=== PATIENT | male | born 1985 | race Caucasian/White ===

== ENCOUNTER → 2025-05-02 | Day surgery (SDC) | payer BC ==
[2025-04-29 16:09] LABS: BASOPHILS % 0.5 % (0.0-1.0); EOSINOPHILS % 2.0 % (0.0-6.0); LYMPHOCYTES % 27.4 % (18.0-39.1); MONOCYTES % 10.8 % (4.4-11.3); NEUTROPHILS % 58.8 % (38.7-80.0); RED CELL DISTRIBUTION WIDTH 13.2 % (11.7-14.4)
[2025-04-29 16:43] LABS: EST GLOMERULAR FILTRATION RATE 65.0 ML/MIN (>=60)
[~2025-05-02] MED LIST: ACETAMINOPHEN 1000 MG/100 ML 100 ML IV ONE; ATORVASTATIN CA20 MG PO; ELIQUIS5 MG PO; FAMOTIDINE 20 MG/2 ML VIAL IV ONE; FENTANYL CITRATE/PF 100MCG/2 ML INJ ONE; FISH OIL 1,001000 M1 PO; LIDOCAINE HCL 2% LOCAL INJ 5 ML SDV VIAL INJ ONE; LOSARTAN POTASS25 MG PO; METFORMIN HCL500 MG PO; METOPROLOL SUCC50 MG PO; MIDAZOLAM HCL 2 MG/2 ML VIAL ONE; MULTI-VITAMIN1 EACH PO; ONDANSETRON HCL INJ 2MG/ML 2ML 2 MG/ML VIAL ONE; OZEMPIC0.25 MG/02 SC; PROPOFOL IV EMULSION 10 MG/ML 20 ML VIAL ONE; SEVOFLURANE INHAL SOLN 250 ML PEN BTL ONE; TRICOR48 MG PO
[2025-05-02] MEDS: CEFAZOLIN SODIUM 2 GM ONE (10:26)
[2025-05-02] MEDS: SODIUM CHLORIDE 0.9% 1000ML 1,000 ML ONE (10:26)
[2025-05-02] MEDS: INSULIN REGULAR, HUMAN 100 UNIT/1 ML ONE (11:14)
[2025-05-02 14:17] VITALS: BP 131/84; PULSE 88; RESP 18; O2SAT 98
== END | disposition home or self-care (01) ==
LOC: OR 10:06
PROVIDERS: ATTEND Urology
DX: N43.3 Hydrocele, unspecified (principal); R35.1 Nocturia; N32.89 Other specified disorders of bladder; N32.81 Overactive bladder; N40.0 Benign prostatic hyperplasia without lower urinary tract symptoms; I10 Essential (primary) hypertension; E11.9 Type 2 diabetes mellitus without complications; Z79.84 Long term (current) use of oral hypoglycemic drugs; I48.0 Paroxysmal atrial fibrillation; Z79.01 Long term (current) use of anticoagulants; I49.3 Ventricular premature depolarization; E78.2 Mixed hyperlipidemia; R94.31 Abnormal electrocardiogram [ECG] [EKG]; Z01.810 Encounter for preprocedural cardiovascular examination; Z01.812 Encounter for preprocedural laboratory examination; Z01.818 Encounter for other preprocedural examination; Z79.899 Other long term (current) drug therapy
CPT/HCPCS: 36415 ×2; 52000; 55040; 71046; 80048; 82948; 85025; 88304; 93005; J0131; J1308; J2003; J2250; J2405; J2704; J3010; J7030